=== PATIENT | female | born 1990 | race Caucasian/White ===

== ENCOUNTER → 2018-04-28 | Outpatient (REF) | payer BC ==
[2018-04-29 13:07] LABS: CHLAMYDIA DNA AMPLIFICATION NEGATIVE (NEGATIVE); GC DNA AMPLIFICATION NEGATIVE (NEGATIVE)
== END ==
LOC: M WUC 08:53
DX: R30.0 Dysuria (principal)
CPT/HCPCS: 87186

== ENCOUNTER → 2018-10-08 | Outpatient (REF) | payer BC | LOC: M LAB REF 11:59 | PROVIDERS: ATTEND Physician Assistant | DX: R30.0 Dysuria (principal) ==